=== PATIENT | female | born 1950 | race African-American/Black ===

== ENCOUNTER 2018-01-14 13:30 | Outpatient (RCR) | payer OTHER ==
[~2018-01-14 13:30] MED LIST: AMLODIPINE BESY10 MG ORAL; LACTULOSE20 GM/301 ORAL
== END 2018-02-06 | disposition home or self-care (01) ==
LOC: PTY 13:30
DX: M54.5 Low back pain (principal); G89.29 Other chronic pain

== ENCOUNTER 2018-02-14 10:20 | Outpatient (RCR) | payer OTHER | END 2018-03-08 | disposition home or self-care (01) | LOC: PTY 10:20 | DX: M54.5 Low back pain (principal); G89.29 Other chronic pain ==

== ENCOUNTER 2018-03-10 14:20 | Outpatient (RCR) | payer OTHER | END 2018-04-08 | disposition home or self-care (01) | LOC: PTY 14:20 | DX: M54.5 Low back pain (principal); G89.29 Other chronic pain ==